=== PATIENT | male | born 1955 | race Caucasian/White ===

== ENCOUNTER 2025-02-01 11:28 | Observation (INO) | payer SELFPAY ==
[2025-02-01] VITALS (7 sets, daily range): BP systolic 118–184; BP diastolic 52–92; PULSE 55–67; RESP 16; TEMP 36.4–36.8; O2SAT 95–99; BMI 20.9; BMI 21.8
--- NOTE | 2025-02-01 11:45 | XRR_ITS ---
PROCEDURE INFORMATION: Exam: XR Chest Exam date and time: 02/01/2025 12:00 PM Age: 69 years old Clinical indication: Cough and dyspnea; Additional info: Dyspnea/cough TECHNIQUE: Imaging protocol: Radiologic exam of the chest. Views: 1 view. COMPARISON: No relevant prior studies available. FINDINGS: Lungs: Unremarkable. No consolidation or mass. Pleural spaces: Unremarkable. No pleural effusion. No pneumothorax. Heart/Mediastinum: Unremarkable. No cardiomegaly. Bones/joints: Unremarkable. XR/XR chest 1V portable [id number] IMPRESSION: No acute findings.
--- NOTE | 2025-02-01 11:45 | CT_ITS ---
WS: [id number] CT HEAD TECHNIQUE: Noncontrast CT of the head obtained from the skullbase to the vertex. CLINICAL INFORMATION: Syncopal episode fall COMPARISON: None. DLP: 1006.[address] scans at [facility] use at least one of these dose optimization techniques: automated exposure control; mA and/or kV adjustment per patient size (includes targeted exams where dose is matched to clinical indication); or iterative reconstruction. FINDINGS: No evidence of intracranial hemorrhage or mass effect. Ventricular system and basal cisterns are patent. Mild small vessel changes with mild parenchymal volume loss. Benign basal ganglia calcifications. No extra-axial fluid collections. No evidence of mass or mass effect. Vascular calcification. A few secretions within the sphenoid sinus. Paranasal sinuses are otherwise well aerated. Mastoid air cells are well aerated. CT/CT head wo con* [id number] IMPRESSION: 1. No evidence of intracranial hemorrhage or mass effect. 2. No acute intracranial findings.
--- NOTE | 2025-02-01 12:02 | ECG_ITS ---
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1955 Requested By: Eric Naik Order Number: [id number] Reading MD: DEREK YAN Measurements Intervals [place] Rate: 58 P: 48 [place]: 227 QRS: 61 QRSD: 98 T: 63 QT: 436 QTc: 428 Interpretive Statements SINUS BRADYCARDIA WITH FIRST DEGREE AV BLOCK INCOMPLETE RIGHT BUNDLE BRANCH BLOCK [90+ ms QRS DURATION, TERMINAL R IN V1/V2, 40+ ms S IN I/aVL/V4/V5/V6] MINIMAL VOLTAGE CRITERIA FOR LVH, CONSIDER NORMAL VARIANT [MEETS CRITERIA IN ONE OF: R(aVL), S(V1), R(V5), R(V5/V6)+S(V1)] No previous ECG available for comparison Electronically Signed On 02-04-2025 13:59:52 CDT by DEREK YAN [email or web address] [id number]
[2025-02-01 12:21] LABS: Hematocrit 42.6 % (37-53); Hemoglobin 14.00 g/dL (11.27-16.99); Mean Corpuscular HGB Conc 32.9 g/dL (30-55); Mean Corpuscular Hemoglobin 29.4 pg (27-33); Mean Corpuscular Volume 89.5 fl (82-101); Nucleated Red Blood Cells % 0 %; Platelet Count 235 10^3/cmm (157-399); Red Blood Count 4.76 10^6/uL (3.85-5.65); White Blood Count 8.51 10^3/uL (3.29-11.43)
[2025-02-01 12:47] LABS: Alanine Aminotransferase 25 U/L (0-41); Albumin Level 4.2 g/dL (3.5-5.2); Alkaline Phosphatase 110 U/L (40-130); Anion Gap 15.9 (5-19); Aspartate Amino Transferase 20 U/L (0-40); Blood Urea Nitrogen 19 mg/dL (8-23); Calcium 8.8 mg/dL (8.5-10.5); Carbon Dioxide 24 mmol/L (22-29); Chloride 105 mmol/L (98-107); Creatinine Clr Calc Pharmacy 71.0804; Globulin 2.9 g/dL (1.3-4.6); Glucose 75 mg/dL (65-115); Osmolality Calculated 293 mOsm/kg (285-295); Potassium 3.9 mmol/L (3.5-5.1); Sodium 141 mmol/L (136-145); Total Protein 7.1 g/dL (6.6-8.7)
[2025-02-01 12:49] LABS: Troponin(5th) Baseline 8 ng/L (0-15)
--- NOTE | 2025-02-01 13:35 | USCV_ITS ---
Alen Lee Age: 69 Gender: M : 1955 Exam Date: 02/01/2025 14:10 Ordering Phys: Zoraida Danielson MD Technologist: [place] [facility] [place]: tia cva BP: 153 / 81 HR: 63 Rhythm: Sinus Technical Quality: Adequate MEASUREMENTS (Male / Female) Normal Values 2D ECHO LV Diastolic Diameter PLAX 4.2 cm 4.2 - 5.9 / 3.9 - 5.3 cm IVS Diastolic Thickness 0.9 cm 0.6 - 1.0 / 0.6 - 0.9 cm IVS Systolic Thickness 1.3 cm LVPW Diastolic Thickness 1.0 cm 0.6 - 1.0 / 0.6 - 0.9 cm LVPW Systolic Thickness 1.6 cm LVOT Diameter 2.2 cm LV Ejection Fraction 2D Teich 64.1 % LV Ejection Fraction MOD 4C 64.9 % LA Diameter 2.8 cm RA Systolic Volume 4C AL 27.1 ml RA Systolic Volume 4C MOD 25.9 ml LA Sys Volume AL 45.3 cm cubed LA Sys Volume Index AL 26.8 cm cubed/m squared Aorta at Sinotubular Diameter 2.6 cm M-MODE LA Ao Ratio MM 1.1 AV Cusp Separation MM 2.3 cm DOPPLER AV Peak Velocity 144.0 cm/s LVOT Peak Velocity 85.0 cm/s AV Area Cont Eq vti 4.3 cm squared AV Area Cont Eq pk 2.2 cm squared MV Area PHT 5.2 cm squared Mitral E to A Ratio 1.1 TV Peak Velocity 273.7 cm/s TR Peak Velocity 524.0 cm/s TR Peak Gradient 109.8 mmHg TV Peak E Velocity 89.0 cm/s PV Peak Velocity 61.0 cm/s FINDINGS Left Ventricle Normal left ventricular size, systolic function and wall thickness, with no regional wall motion abnormalities. Left ventricular ejection fraction is estimated at 60 %. Grade II/IV diastolic dysfunction, moderately elevated filling pressures. Right Ventricle The right ventricle is normal in size and function. Right Atrium The right atrium is normal in size. Left Atrium The left atrium is normal in size. Mitral Valve Moderately thickened mitral valve. No mitral valve stenosis. Mild mitral valve regurgitation. Aortic Valve Moderate aortic valve calcification. No aortic valve stenosis. Moderate aortic valve regurgitation. Tricuspid Valve Structurally normal tricuspid valve without significant stenosis or regurgitation. Pulmonary artery systolic pressure is normal. Pulmonic Valve Structurally normal pulmonic valve without significant stenosis. There is no pulmonic regurgitation. Pericardium Normal pericardium without effusion. Aorta Normal ascending aorta dimension. IVC The inferior vena cava appears normal. CONCLUSIONS Normal left ventricular size, systolic function and wall thickness, with no regional wall motion abnormalities. Left ventricular ejection fraction is estimated at 60 %. Grade II/IV diastolic dysfunction, moderately elevated filling pressures. Moderate aortic valve calcification. No aortic valve stenosis. Moderate aortic valve regurgitation. Moderately thickened mitral valve. No mitral valve stenosis. Mild mitral valve regurgitation. There is no pericardial effusion. Right atrial pressure is around 5 mm of mercury. Anne Marie Kong MD (Electronically Signed) Final Date: 02 February 2025 12:58 S
--- NOTE | 2025-02-01 13:38 | USCV_ITS ---
Jesus Alen Age: 69 Gender: M : 1955 Exam Date: 02/01/2025 14:37 Ordering Phys: Zoraida Danielson MD Technologist: Exam Location: [facility] [place] Indication: tia cva Risk Factors: Previous Vascular Surgery: Right Brachial BP: / Left Brachial BP: / Right Left Velocity (cm/s) Spectral Plaque Velocity (cm/s) Spectral Plaque Syst/Diast Broadening Syst/Diast Broadening 95.70/ 21.90 Prox CCA 33.10 / 8.00 95.60/ 19.30 Mid CCA 46.60 / 9.80 53.00/ 11.30 Distal CCA 51.10 / 10.70 45.20/ 14.10 Prox ICA 44.50 / 10.40 59.40/ 20.70 Mid ICA 47.80 / 15.60 51.80/ 15.00 Distal ICA 50.40 / 17.30 55.60 ECA 56.80 1.10 ICA/CCA 1.00 Antegrade Vertebral Antegrade 27.30/ 9.30 cm/s 37.40/ 11.20 cm/s Tri Subclavian Tri 86.70 77.40 CONCLUSIONS Right ICA stenosis <50%. Mild atheromatous plaque right carotid bulb/ICA. Left ICA stenosis <50%. Mild atheromatous plaque left carotid bulb/ICA. Intimal thickening in the common carotid arteries and internal carotid arteries bilaterally. Normal antegrade Doppler flow noted in the right vertebral artery. Normal antegrade Doppler flow noted in the left vertebral artery. Luis Laws MD (Electronically Signed) Final Date: 01 February 2025 16:17 S
--- NOTE | 2025-02-01 13:57 | ED_ITS ---
HPI - Syncope 2 General: Chief Complaint: Syncope Stated Complaint: fall-blacked out yesterday Time Seen by Provider: 02/01/25 11:44 History of Present Illness: 69-year-old male presents emergency room after syncopal episode. Has had several episodes where he is just spontaneously lost consciousness. He has not had any today. Did have episode yesterday while he was at work no warning just simply passed out lost consciousness he did not think he hit his head he is not on any anticoagulant he denies any chest pain lightheadedness or dizziness. He has had episodes like this previously. No history of any arrhythmias no known history of any coronary artery disease. Associated symptoms: Deny abdominal pain, chest pain or fever(s) Related Data Allergies Allergy/AdvReac Type Severity Reaction Status Date / Time No Known Allergies Allergy Verified 02/01/25 11:41 Review of Systems 2 Const: Denies: fever(s) or chills Card: Denies: chest pain Resp: Denies: dyspnea GI: Denies: abdominal pain : Denies: dysuria, urinary frequency or urinary urgency Musc: Denies: neck pain or back pain Skin/Breast: Denies: rash Physical Exam 2 Const: GENERAL APPEARANCE: cooperative ORIENTATION/CONSCIOUSNESS: Yes awake, Yes oriented to person, Yes oriented to place and Yes oriented to time HENMT: COMMON NORMALS: normocephalic, atraumatic and hearing grossly normal bilaterally HEAD & SCALP: normocephalic and atraumatic Resp: COMMON NORMALS: normal respiratory effort, No retractions, No use of accessory muscles and clear to auscultation bilaterally AUSCULTATION: clear to auscultation bilaterally Cardio: COMMON NORMALS: regular rate, regular rhythm and No murmurs present (Cardio) RATE: regular rate RHYTHM: regular rhythm GI: COMMON NORMALS: Soft to palpation and No hepatosplenomegaly present A USCULTATION: Yes normoactive bowel sounds PALPATION: Yes Soft to palpation, No Tenderness to palpation present (GI), No Guarding due to palpation present (GI) and Yes No hepatosplenomegaly present Extremity: COMMON NORMALS: normal to inspection, capillary refill normal, no clubbing, cyanosis or edema, no calf tenderness and no pedal edema Neuro: SENSORIUM/ORIENTATION: Yes oriented to person, Yes oriented to place and Yes oriented to time OTHER: No focal neurologic deficits strength equal in all extremities dorsal plantarflexion and 5 of 5 no arm drift no leg drift normal facial symmetry no visual field defects Skin: COMMON NORMALS: no rashes or lesions noted GENERAL SKIN EXAM: no rashes or lesions noted Course 2 Vital Signs: Vital signs: Vital Signs Temperature 97.5 F L 02/01/25 11:38 Pulse Rate 57 L 02/01/25 13:44 Respiratory Rate 16 02/01/25 13:44 Blood Pressure 153/81 02/01/25 13:44 Pulse Oximetry 98 02/01/25 13:44 Oxygen Delivery Me thod Room Air 02/01/25 13:44 MDM - Syncope Medical Decision Making Unexplained syncope. EKG showed sinus bradycardia with a first-degree AV block no acute ST changes rate of 57 LA interval of 224 QTc with 428. Patient has not had any further symptoms since arriving here is auscultation of his heart was normal. Discussed with hospitalist will admit given multiple syncopal episodes for cardiac evaluation. CT head is negative no focal neurologic deficits on exam Lab Data I reviewed the patient's lab results. 02/01/25 12:08 02/01/25 12:08 Radiology Impressions Chest X-Ray 02/01/25 11:45 IMPRESSION: No acute findings. Head CT 02/01/25 11:45 IMPRESSION: 1. No evidence of intracranial hemorrhage or mass effect. 2. No acute intracranial findings. Laboratory Results WBC 8.51 10^3/uL (3.29-11.43) 02/01/25 12:08 RBC 4.76 10^6/uL (3.85-5.65) 02/01/25 12:08 Hgb 14.00 g/dL (11.27-16.99) 02/01/25 12:08 Hct 42.6 % (37-53) 02/01/25 12:08 MCV 89.5 fl (82-101) 02/01/25 12:08 MCH 29.4 pg (27-33) 02/01/25 12:08 MCHC 32.9 g/dL (30-55) 02/01/25 12:08 RDW 13.2 % (12.1-15.1) 02/01/25 12:08 Plt Count 235 10^3/cmm (157-399) 02/01/25 12:08 MPV 10.5 fL (7.4-10.4) H 02/01/25 12:08 Neut % (Auto) 70.6 % 02/01/25 12:08 Lymph % (Auto) 19.5 % 02/01/25 12:08 [place] % (Auto) 6.8 % 02/01/25 12:08 Eos % (Auto) 2.2 % 02/01/25 12:08 Baso % (Auto) 0.5 % 02/01/25 12:08 Neut # (Auto) 6.01 10^3/uL (1.8-7.7) 02/01/25 12:08 Lymph # (Auto) 1.7 10^3/uL (0.8-4.8) 02/01/25 12:08 [place] # (Auto) 0.6 10^3/uL (0.2-0.9) 02/01/25 12:08 Eos # (Auto) 0.2 10^3/uL (0.0-0.8) 02/01/25 12:08 Baso # (Auto) 0.0 10^3/uL (0.0-0.1) 02/01/25 12:08 Nucleated RBC % (auto) 0 % 02/01/25 12:08 Nucleated RBCs # 0.0 /100WBC 02/01/25 12:08 Sodium 141 mmol/L (136-145) 02/01/25 12:08 Potassium 3.9 mmol/L (3.5-5.1) 02/01/25 12:08 Chloride 105 mmol/L (98-107) 02/01/25 12:08 Carbon Dioxide 24 mmol/L (22-29) 02/01/25 12:08 Anion Gap 15.9 (5-19) 02/01/25 12:08 BUN 19 mg/dL (8-23) 02/01/25 12:08 Creatinine 0.9 mg/dL (0.7-1.2) 02/01/25 12:08 GFR Calculation 83.9 mL/min (90-130) L 02/01/25 12:08 Glucose 75 mg/dL (65-115) 02/01/25 12:08 Calculated Osmolality 293 mOsm/kg (285-295) 02/01/25 12:08 Calcium 8.8 mg/dL (8.5-10.5) 02/01/25 12:08 Total Bilirubin 0.5 mg/dL (0.15-1.2) 02/01/25 12:08 AST 20 U/L (0-40) 02/01/25 12:08 ALT 25 U/L (0-41) 02/01/25 12:08 Alkaline Phosphatase 110 U/L (40-130) 02/01/25 12:08 Troponin T Baseline 8 ng/L (0-15) 02/01/25 12:08 Total Protein 7.1 g/dL (6.6-8.7) 02/01/25 12:08 Albumin 4.2 g/dL (3.5-5.2) 02/01/25 12:08 Globulin 2.9 g/dL (1.3-4.6) 02/01/25 12:08 All radiology interpretation(s) finalized by discharge Discharge Plan Discharge Patient Disposition: Placed in Observation Clinical Impression: Syncope Coding Level of Care Code ED 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
--- NOTE | 2025-02-01 13:59 | ECG_ITS ---
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
[2025-02-01 14:14] LABS: Estmated Average Glucose 111; Hemoglobin A1C 5.5 % (4.0-6.0)
[2025-02-01 14:21] LABS: Cholesterol 152 mg/dL (0-200); HDL Cholesterol 54 mg/dL (60-100); Thyroid Stimulating Hormone 1.41 uIU/mL (0.27-4.20); Triglycerides 92 mg/dL (0-150); Vitamin B12 471 pg/mL (232-1245)
[2025-02-01 14:55] LABS: Troponin 5 2HR 7.88 ng/L (0-15)
[2025-02-01 14:58] LABS: Troponin 5 2HR Delta -0.12 ABS# (0-10)
--- NOTE | 2025-02-01 17:39 | ECG_ITS ---
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1955 Requested By: Eric Naik Order Number: [id number] Reading MD: DEREK YAN Measurements Intervals [place] Rate: 59 P: 6 CO: 204 QRS: 26 QRSD: 99 T: 52 QT: 435 QTc: 433 Interpretive Statements SINUS BRADYCARDIA INCOMPLETE RIGHT BUNDLE BRANCH BLOCK [90+ ms QRS DURATION, TERMINAL R IN V1/V2, 40+ ms S IN I/aVL/V4/V5/V6] MODERATE ST DEPRESSION [0.05+ mV ST DEPRESSION] Compared to ECG 02/01/2025 13:59:04 Incomplete right bundle-branch block now present ST (T wave) deviation now present First degree AV block no longer present Electronically Signed On 02-04-2025 14:10:48 CDT by DEREK YAN [id number]
[2025-02-01 18:24] LABS: Troponin 5 6HR 8.34 ng/L (0-15); Troponin 5 6HR Delta 0.34 ng/L (0-12)
--- NOTE | 2025-02-01 20:34 | PM.HP ---
Providers/Chief Complaint Admitting Physician: Zoraida Danielson MD Chief Complaint: fall-blacked out yesterday History of Present Illness Alen Lee is a 69 year old male with no significant past medical history presented to the hospital today with a syncopal episode. He states that he had a near syncopal episodes twice in the last week however on completely collapsed without warning. Did not feel lightheaded that day that he can think of. He works at a [email or web address]. Heart rate has to be noted on the lower side in the ER along with first degree AV block. Denies nausea vomiting diarrhea chest pain shortness of breath or any other issues at this time. Family present at bedside Medications/Allergies Home Medications ?Medication ?Instructions ?Recorded ?Confirmed ?Last Taken ?Type Blood Pressure Support 1 cap PO DAILY 02/02/25 02/02/25 01/31/25 History Allergies Allergy/AdvReac Type Severity Reaction Status Date / Time No Known Allergies Allergy Verified 02/01/25 11:41 Vitals/I&O/Wt Last Vital Signs Temp 97.6 F 02/02/25 11:09 Pulse 53 L 02/02/25 11:09 Resp 16 02/02/25 11:09 BP 160/77 02/02/25 11:09 Pulse Ox 99 02/02/25 11:09 O2 Del Method Room Air 02/02/25 11:09 02/02/25 02/02/25 02/02/25 06:59 14:59 22:59 Intake Total 1073.333 / 6083.473 1152 / 1480 Balance 1073.333 / 2568.629 2276 / 1480 Weight last 48 hrs Weight 63.049 kg Weight 63.191 kg Weight 60.781 kg Physical Exam Narrative: General: Alert oriented x3, patient seen sitting up in bed appearing comfortable at this time. HEENT: Normocephalic, atraumatic, EOMI, breathing comfortably on room air. Cardio: Regular rate rhythm, normal S1-S2, Respiratory: Good bilateral air entry, no wheezes no rhonchi appreciated GI: Abdomen soft, nontender, nondistended, bowel sounds + Behavior: Appropriate and cooperative Extremities: No edema bilateral extremities Data 02/02/25 04:06 02/02/25 04:06 A&P Assessment and plan 1. Bradycardia: 2. AV block, 1st degree: 3. Syncope: 4. Hypertension: Plan: #Syncopal episode #Bradycardia reports degree AV block #Possible new onset hypertension ? Blood pressure noted to be high in ER. ? EKG showed sinus bradycardia first-degree AV block ? Saturating 99% on room air ? Check TSH, echocardiogram, carotid Dopplers ? CT head negative for bleed ? Chest x-ray reviewed, no acute findings ? Placed on cardiac telemetry and monitor ? Patient is not known to be an athlete. ? Placed on amlodipine 10 mg daily. ? Check orthostatic vitals ? Trops are negative ? Placed on regular diet ? Up with assistance due to syncope. Full code DVT prophylaxis: Low risk PDMP PDMP Reviewed: Not Reviewed Attestations Medical Necessity Statement*: Observation status for syncopal episode and further workup suspicion of cardiogenic syncope and treatment of hypertension. Expect less than 2 midnight stay however that may be converted to a longer stay if any abnormalities noted. Diagnoses Bradycardia R00.1 AV block, 1st degree I44.0 Syncope R55 Hypertension I10
[2025-02-02] VITALS (10 sets, daily range): BP systolic 115–168; BP diastolic 64–77; PULSE 51–78; RESP 14–55; TEMP 36.4–36.7; O2SAT 97–100
[2025-02-02 04:17] LABS: Hematocrit 36.0 % (37-53); Hemoglobin 12.10 g/dL (11.27-16.99); Mean Corpuscular HGB Conc 33.6 g/dL (30-55); Mean Corpuscular Hemoglobin 30.0 pg (27-33); Mean Corpuscular Volume 89.1 fl (82-101); Nucleated Red Blood Cells % 0 %; Platelet Count 177 10^3/cmm (157-399); Red Blood Count 4.04 10^6/uL (3.85-5.65); White Blood Count 5.47 10^3/uL (3.29-11.43)
[2025-02-02 04:34] LABS: Alanine Aminotransferase 18 U/L (0-41); Albumin Level 3.2 g/dL (3.5-5.2); Alkaline Phosphatase 95 U/L (40-130); Anion Gap 13.0 (5-19); Aspartate Amino Transferase 17 U/L (0-40); Blood Urea Nitrogen 15 mg/dL (8-23); Calcium 8.0 mg/dL (8.5-10.5); Carbon Dioxide 23 mmol/L (22-29); Chloride 108 mmol/L (98-107); Creatinine Clr Calc Pharmacy 72.1516; Globulin 2.8 g/dL (1.3-4.6); Glucose 105 mg/dL (65-115); Magnesium 2.0 mg/dL (1.7-2.3); Osmolality Calculated 291 mOsm/kg (285-295); Potassium 4.0 mmol/L (3.5-5.1); Sodium 140 mmol/L (136-145); Total Protein 6.0 g/dL (6.6-8.7)
--- NOTE | 2025-02-02 12:02 | ECG_ITS ---
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 Interpretive Statements EXERCISE STRESS TEST EXERCISE DATA: The patient was exercised by Xu protocol. Baseline heart rate was 88 beats per minute. Baseline blood pressure was 143/105 millimeters of mercury. Maximal predicted heart rate was 152 beats per minute. Maximum heart rate achieved was 155, which was 101% of the maximum predicted heart rate. Maximum blood pressure was 183/85 millimeters of mercury. Total exercise time was 5 minutes and 6 seconds. Maximum METs achieved was 7.0. The reason for ending the test was completion of protocol. The patient complained of shortness of breath during the stress test, which then resolved at the end of the test. ELECTROCARDIOGRAM: BASELINE: Showed sinus rhythm, normal axis, no significant ST-T changes at the baseline noted. [] EXERCISE: At the peak exercise level, [] No significant ST-T changes suggestive of ischemia noted. [] RECOVERY: During the recovery period, heart rate dropped appropriately. No significant ST-T changes in the recovery suggestive of ischemia noted. [] CONCLUSION: 1. Exercise capacity is fair. 2. Heart rate response was appropriate 3. Blood pressure response was appropriate 4. Symptoms not suggestive of ischemia. 5. Electrocardiogram portion of the stress test was not suggestive of ischemia. 6. Nuclear scan will be documented separately. Electronically Signed On 02-05-2025 12:10:20 CDT by Brice Muñoz M.D. [id number]
--- NOTE | 2025-02-02 16:39 | P.PN_ITS ---
Subjective 2 Subjective: Seen this morning. Sitting up in chair. Overnight on telemetry he was noted to be bradycardic down to 47 heart rate. Sinus pericardia, no sinus pauses noted Vitals/I&O/Wt Last Vital Signs Temp 97.6 F 02/02/25 11:09 Pulse 53 L 02/02/25 11:09 Resp 16 02/02/25 11:09 BP 160/77 02/02/25 11:09 Pulse Ox 99 02/02/25 11:09 O2 Del Method Room Air 02/02/25 11:09 02/02/25 02/02/25 02/02/25 06:59 14:59 22:59 Intake Total 1073.333 / 0695.804 5732 / 1480 Balance 1073.333 / 2902.359 8059 / 1480 Weight last 48 hrs Weight 63.049 kg Weight 63.191 kg Weight 60.781 kg Physical Exam 2 Narrative: General: Alert oriented x3, patient seen sitting up in bed appearing comfortable at this time. HEENT: Normocephalic, atraumatic, EOMI, breathing comfortably on room air. Cardio: Regular rate rhythm, normal S1-S2, Respiratory: Good bilateral air entry, no wheezes no rhonchi appreciated GI: Abdomen soft, nontender, nondistended, bowel sounds + Extremities: No edema bilateral extremities Data 02/02/25 04:06 02/02/25 04:06 A&P Assessment and plan 1. Bradycardia: 2. AV block, 1st degree: 3. Syncope: 4. Hypertension: Plan: #Syncopal episode #Bradycardia reports degree AV block #Possible new onset hypertension ? Blood pressure noted to be high in ER. ? EKG showed sinus bradycardia first-degree AV block ? Saturating 99% on room air ? Check TSH, echocardiogram, carotid Dopplers ? CT head negative for bleed ? Chest x-ray reviewed, no acute findings ? Placed on cardiac telemetry and monitor ? Patient is not known to be an athlete. ? Placed on amlodipine 10 mg daily. ? Check orthostatic vitals ? Trops are negative ? Placed on regular diet ? Up with assistance due to syncope. Full code DVT prophylaxis: Low risk 02/02/2025 seen today will order exercise stress test for tuesday echo pending continue to hospitalize at this point add lisinopril 20 daily continue amlodipine 10 daily PDMP PDMP Reviewed: Not Reviewed Attestations 2 Medical Necessity Statement*: Observation status for syncopal episode and further workup suspicion of cardiogenic syncope and treatment of hypertension. Diagnoses Bradycardia R00.1 AV block, 1st degree I44.0 Syncope R55 Hypertension I10
[2025-02-03] VITALS (11 sets, daily range): BP systolic 102–138; BP diastolic 54–75; PULSE 57–67; RESP 16–20; TEMP 36.3–36.8; O2SAT 95–97
--- NOTE | 2025-02-03 13:35 | P.PN_ITS ---
Subjective 2 Subjective: seen today awaiting stress test tuesday Vitals/I&O/Wt Last Vital Signs Temp 97.7 F 02/03/25 11:40 Pulse 61 02/03/25 11:40 Resp 18 02/03/25 11:40 BP 119/64 02/03/25 11:40 Pulse Ox 97 02/03/25 11:40 O2 Del Method Room Air 02/03/25 11:40 02/02/25 02/03/25 02/03/25 22:59 06:59 14:59 Intake Total 240 / 1720 480 / 2200 960 / 960 Balance 240 / 1720 480 / 2200 960 / 960 Weight last 48 hrs Weight 63.049 kg Weight 63.049 kg Weight 63.191 kg Physical Exam 2 Narrative: General: Alert oriented x3, patient seen sitting up in bed appearing comfortable at this time. HEENT: Normocephalic, atraumatic, EOMI, breathing comfortably on room air. Cardio: Regular rate rhythm, normal S1-S2, Respiratory: Good bilateral air entry, no wheezes no rhonchi appreciated GI: Abdomen soft, nontender, nondistended, bowel sounds + Extremities: No edema bilateral extremities Data 02/02/25 04:06 02/02/25 04:06 A&P Assessment and plan 1. Bradycardia: 2. AV block, 1st degree: 3. Syncope: 4. Hypertension: Plan: #Syncopal episode #Bradycardia reports degree AV block #Possible new onset hypertension ? Blood pressure noted to be high in ER. ? EKG showed sinus bradycardia first-degree AV block ? Saturating 99% on room air ? Check TSH, echocardiogram, carotid Dopplers ? CT head negative for bleed ? Chest x-ray reviewed, no acute findings ? Placed on cardiac telemetry and monitor ? Patient is not known to be an athlete. ? Placed on amlodipine 10 mg daily. ? Check orthostatic vitals ? Trops are negative ? Placed on regular diet ? Up with assistance due to syncope. Full code DVT prophylaxis: Low risk 02/02/2025 seen today will order exercise stress test for tuesday echo pending continue to hospitalize at this point add lisinopril 20 daily continue amlodipine 10 daily 02/03/2025 continue lisinopril 20 daily continue amlodipine 10 dialy echo reviewed exercise stress test in AM (Discussed with cardiology) PDMP PDMP Reviewed: Not Reviewed Attestations 2 Medical Necessity Statement*: Observation status for syncopal episode and further workup suspicion of cardiogenic syncope and treatment of hypertension. Diagnoses Bradycardia R00.1 AV block, 1st degree I44.0 Syncope R55 Hypertension I10
[2025-02-04] VITALS (9 sets, daily range): BP systolic 108–152; BP diastolic 58–86; PULSE 57–86; RESP 17–18; TEMP 36.4–36.8; O2SAT 96–97
[2025-02-04 04:46] LABS: Hematocrit 41.0 % (37-53); Hemoglobin 13.40 g/dL (11.27-16.99); Mean Corpuscular HGB Conc 32.7 g/dL (30-55); Mean Corpuscular Hemoglobin 30.0 pg (27-33); Mean Corpuscular Volume 91.7 fl (82-101); Nucleated Red Blood Cells % 0 %; Platelet Count 208 10^3/cmm (157-399); Red Blood Count 4.47 10^6/uL (3.85-5.65); White Blood Count 6.05 10^3/uL (3.29-11.43)
[2025-02-04 05:05] LABS: Anion Gap 12.7 (5-19); Blood Urea Nitrogen 13 mg/dL (8-23); Calcium 8.7 mg/dL (8.5-10.5); Carbon Dioxide 26 mmol/L (22-29); Chloride 107 mmol/L (98-107); Creatinine Clr Calc Pharmacy 58.9815; Glucose 112 mg/dL (65-115); Magnesium 2.0 mg/dL (1.7-2.3); Osmolality Calculated 293 mOsm/kg (285-295); Potassium 4.7 mmol/L (3.5-5.1); Sodium 141 mmol/L (136-145)
--- NOTE | 2025-02-04 12:02 | NMCV_ITS ---
NM anusha perf SPECT r/s* [id number] Alen Lee Age: 69 Gender: M : 1955 Exam Date: 02/04/2025 06:40 Ordering Phys: Zoraida Danielson MD Technologist: LAYTON Mack Exam Location: [facility] Indications: CP STRESS TEST Please see separate stress test report in [facility] for full findings IMAGE PROTOCOL Rest/Stress 1 Exercise Day Radiopharmaceutical Dose (mCi) Administration Site Administered by Rest: Tc-99m 10.9 IV LAYTON Alexandra Sestamitodd Stress:Tc-99m 33 IV LAYTON Mack Sestamitodd Rest: 04-Feb-2025 60 Discovery 630 Stress: 04-Feb-2025 15 Discovery 630 Radiopharmaceutical was injected at 87 % maximum heart rate. Images obtained in supine and prone position. SPECT RESULTS Technical Quality: Good Raw Data Analysis: Normal Image Corrections: No attenuation or motion correction applied Summed Stress Score: 1 Summed Rest Score: 2 Summed Difference Score: 0 PERFUSION FINDINGS Small sized fixed perfusion defect seen in inferolateral wall. 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 No significant ischemia. FUNCTIONAL RESULTS (calculated via Gated SPECT) Stress Image LV EF (%): 75 Stress EDV (mL):87 TID: 1.04 Stress ESV (mL):22 FUNCTIONAL FINDINGS: There is normal left ventricular systolic function. IMPRESSIONS 1. 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 No evidence of ischemia. 2. LV systolic function normal. Brice Muñoz MD (Electronically Signed) Final Date: 04 February 2025 08:39 S
--- NOTE | 2025-02-04 13:09 | P.DS_ITS ---
Discharge Providers Date of Admission: 02/01/25 13:52 Date of Discharge: February 04, 2025 Attending Provider at Admission: Zoraida Danielson MD Attending Provider at Discharge: Jared Cancino MD Diagnoses at Discharge Discharge Diagnosis 1. Bradycardia: 2. AV block, 1st degree: 3. Syncope: 4. Hypertension: Reason for Visit Reason for Visit: fall-blacked out yesterday Brief History: Alen Lee is a 69 year old male with no significant past medical history presented to the hospital today with a syncopal episode. He states that he had a near syncopal episodes twice in the last week however on completely collapsed without warning. Did not feel lightheaded that day that he can think of. He works at a [employer]. Heart rate has to be noted on the lower side in the ER along with first degree AV block. Denies nausea vomiting diarrhea chest pain shortness of breath or any other issues at this time. Family present at bedside Hospital Course Hospital Course Patient was admitted to the hospital further evaluation and management. Multiple etiologies including orthostatic hypotension, angina were ruled out. CT head on admission was negative for concern for stroke. Carotid Dopplers were done which were found to be normal. He underwent cardiac stress test on 02/04 which was negative for acute ischemia. During hospitalization he was found to have elevated blood pressures for which he was started on antihypertensives which were uptitrated with goal of less than 140/90 mmHg. Patient did not have any other episodes of presyncope or syncope. Patient's symptoms from admission are most likely due to heat exhaustion. He has been discharged in hemodynamic ally stable condition on oral amlodipine and lisinopril with advised to check his blood pressure daily at home with a goal of less than 140/90 mmHg. He is to follow-up with a primary care provider within next 2 weeks with his blood pressure diary for further adjustment of antihypertensive. Physical Exam Narrative: General: Alert oriented x3, patient seen sitting up in bed appearing comfortable at this time. HEENT: Normocephalic, atraumatic, EOMI, breathing comfortably on room air. Cardio: Regular rate rhythm, normal S1-S2, Respiratory: Good bilateral air entry, no wheezes no rhonchi appreciated GI: Abdomen soft, nontender, nondistended, bowel sounds + Extremities: No edema bilateral extremities Discharge Data Studies Completed and Pending Completed Studies During Hospitalization Category Date Time Status CT head wo con* [id number] Stat Cat Scan 02/01/25 11:45 Completed Sestamibi Stress Test Request Routine Exams 02/02/25 12:02 Draft XR chest 1V portable [id number] Stat Exams 02/01/25 11:45 Completed NM anusha perf SPECT r/s* [id number] Routine Nuc Med 02/04/25 12:02 Completed CV carotid duplex BI* [id number] Stat Ultrasound 02/01/25 13:38 Completed CV. echo complete* [id number] Stat Ultrasound 02/01/25 13:35 Completed Radiology Impressions Chest X-Ray 02/01/25 11:45 IMPRESSION: No acute findings. Head CT 02/01/25 11:45 IMPRESSION: 1. No evidence of intracranial hemorrhage or mass effect. 2. No acute intracranial findings. Laboratory Results WBC 6.05 10^3/uL (3.29-11.43) 02/04/25 04:30 RBC 4.47 10^6/uL (3.85-5.65) 02/04/25 04:30 Hgb 13.40 g/dL (11.27-16.99) 02/04/25 04:30 Hct 41.0 % (37-53) 02/04/25 04:30 MCV 91.7 fl (82-101) 02/04/25 04:30 MCH 30.0 pg (27-33) 02/04/25 04:30 MCHC 32.7 g/dL (30-55) 02/04/25 04:30 RDW 13.0 % (12.1-15.1) 02/04/25 04:30 Plt Count 208 10^3/cmm (157-399) 02/04/25 04:30 MPV 10.7 fL (7.4-10.4) H 02/04/25 04:30 Neut % (Auto) 61.6 % 02/04/25 04:30 Lymph % (Auto) 23.0 % 02/04/25 04:30 [place] % (Auto) 9.3 % 02/04/25 04:30 Eos % (Auto) 4.6 % 02/04/25 04:30 Baso % (Auto) 1.2 % 02/04/25 04:30 Neut # (Auto) 3.73 10^3/uL (1.8-7.7) 02/04/25 04:30 Lymph # (Auto) 1.4 10^3/uL (0.8-4.8) 02/04/25 04:30 [place] # (Auto) 0.6 10^3/uL (0.2-0.9) 02/04/25 04:30 Eos # (Auto) 0.3 10^3/uL (0.0-0.8) 02/04/25 04:30 Baso # (Auto) 0.1 10^3/uL (0.0-0.1) 02/04/25 04:30 Nucleated RBC % (auto) 0 % 02/04/25 04:30 Nucleated RBCs # 0.0 /100WBC 02/04/25 04:30 Sodium 141 mmol/L (136-145) 02/04/25 04:30 Potassium 4.7 mmol/L (3.5-5.1) 02/04/25 04:30 Chloride 107 mmol/L (98-107) 02/04/25 04:30 Carbon Dioxide 26 mmol/L (22-29) 02/04/25 04:30 Anion Gap 12.7 (5-19) 02/04/25 04:30 BUN 13 mg/dL (8-23) 02/04/25 04:30 Creatinine 1.1 mg/dL (0.7-1.2) 02/04/25 04:30 GFR Calculation 66.6 mL/min (90-130) L 02/04/25 04:30 Glucose 112 mg/dL (65-115) 02/04/25 04:30 POC Glucose 131 mg/dL (70-110) H 02/01/25 20:03 Estimat Average Glucose 111 02/01/25 12:08 Hemoglobin A1c 5.5 % (4.0-6.0) 02/01/25 12:08 Calculated Osmolality 293 mOsm/kg (285-295) 02/04/25 04:30 Calcium 8.7 mg/dL (8.5-10.5) 02/04/25 04:30 Phosphorus 2.2 mg/dL (2.5-4.5) L 02/04/25 04:30 Magnesium 2.0 mg/dL (1.7-2.3) 02/04/25 04:30 Total Bilirubin 0.4 mg/dL (0.15-1.2) 02/02/25 04:06 AST 17 U/L (0-40) 02/02/25 04:06 ALT 18 U/L (0-41) 02/02/25 04:06 Alkaline Phosphatase 95 U/L (40-130) 02/02/25 04:06 Troponin T Baseline 8 ng/L (0-15) 02/01/25 12:08 Troponin T 120 Minute 7.88 ng/L (0-15) 02/01/25 14:30 Delta Troponin T -0.12 ABS# (0-10) L 02/01/25 14:30 Troponin T Hi Sens 6Hr 8.34 ng/L (0-15) 02/01/25 17:44 Troponin T Hi Sens 6Hr Delta 0.34 ng/L (0-12) 02/01/25 17:44 Total Protein 6.0 g/dL (6.6-8.7) L 02/02/25 04:06 Albumin 3.2 g/dL (3.5-5.2) L 02/02/25 04:06 Globulin 2.8 g/dL (1.3-4.6) 02/02/25 04:06 Triglycerides 92 mg/dL (0-150) 02/01/25 12:08 Cholesterol 152 mg/dL (0-200) 02/01/25 12:08 LDL Cholesterol, Calc 80 mg/dL (50-129) 02/01/25 12:08 HDL Cholesterol 54 mg/dL (60-100) L 02/01/25 12:08 LDL/HDL Ratio 1.48 RATIO (0.00-3.22) 02/01/25 12:08 Cholesterol/HDL Ratio 2.81 mg/dL (1.0-5.00) 02/01/25 12:08 Vitamin B12 471 pg/mL (232-1245) 02/01/25 12:08 TSH 1.41 uIU/mL (0.27-4.20) 02/01/25 12:08 Vitals Last Vital Signs Temp 97.6 F 02/04/25 11:27 Pulse 68 02/04/25 11:27 Resp 17 02/04/25 11:27 BP 115/74 02/04/25 11:27 Pulse Ox 96 02/04/25 11:27 O2 Del Method Room Air 02/04/25 11:27 Discharge Plan Discharge Patient Disposition: Home Condition: Stable Prescriptions: New amlodipine 10 mg Tablet 10 mg PO DAILY Qty: 30 0RF lisinopril 20 mg Tablet 10 mg PO DAILY 30 Days Qty: 30 0RF simvastatin 10 mg tablet 10 mg PO DAILY Qty: 30 0RF Discontinued Blood Pressure Support 1 cap PO DAILY Discharge Order = DC NOW: Discharge Order (Routine); Ordered 02/04/25 Ordered By: Jared Cancino Other Ambulatory Orders: MCT/Event Monitor 21 Days (Routine) Timeframe: 1 Day Facility: [facility] - Location: Radiology Ordered By: Zoraida Danielson Discharge Diet: Cardiac Patient Instructions: Opioid Safety, Patient Portal & [facility] Instructions Activity Restrictions/Additional Instructions: Check your blood pressure daily at home maintain blood pressure diary. Goal blood pressure is less than 140/90 mmHg. Follow-up with your primary care provider within next 2 weeks for blood pressure diary for further adjustment of antihypertensive as needed. Discharge Attestations Time Spent in Discharge Care*: greater than 30 min Specific Discharge Activities: educating patient, educating and/or supporting family/caregiver, discussing with pcp/other providers, discussing with manager rn case/social workers/dc planners, documenting/other paperwork and evaluating patient/reviewing data Status at Discharge: Cognitive status at discharge: cognitively intact , Behavioral status at discharge: cooperative , Functional status at discharge: independent ambulation , Overall status at discharge: patient is back to baseline Quality Metrics Clinical Quality Measures [ No reported AMI, CVA or VTE this stay] Coding Level of Care Code 61082 Total time (in minutes) for Discharge: 65 Diagnoses Bradycardia R00.1 AV block, 1st degree I44.0 Syncope R55 Hypertension I10
--- NOTE | 2025-02-04 14:48 | PC.NURSE ---
Discharge Note Patient discharged to home via private vehicle accompanied by family. Discharge instructions reviewed with patient and/or paper sales representative. Mobile pharmacy medications and/or prescriptions provided. Belongings/home medications returned.
--- NOTE | 2025-02-04 15:21 | PC.NURSE ---
I placed patients event monitor and educated them on how to use, patient showed understanding by verbal agreement
== END 2025-02-04 15:22 | disposition home or self-care (01) ==
LOC: ER 14:03 → MEDSURG 14:32
PROVIDERS: Admitting Provider Internal Medicine; Emergency Provider Family Medicine; Visit Provider Student in an Organized Health Care Education/Training Program
DX: R55 Syncope and collapse (principal); I44.0 Atrioventricular block, first degree; R00.1 Bradycardia, unspecified; I10 Essential (primary) hypertension
CPT/HCPCS: 36415; 36416; 70450; 71045; 78452; 80048; 80053; 80061; 82607; 82962; 83036; 83735; 84100; 84443; 84484; 85025; 93005; 93017; 93306; 93880; 96360; 96361; 96375; 99285; A9500; G0378; J7030; J9999

== ENCOUNTER → 2025-06-04 09:49 | Outpatient (BNVA) | payer MEDICARE, SELFPAY | PROVIDERS: PCP Nurse Practitioner Family; Visit Provider Nurse Practitioner Family | DX: Z12.5 Encounter for screening for malignant neoplasm of prostate (principal); I10 Essential (primary) hypertension; R55 Syncope and collapse; R00.1 Bradycardia, unspecified | CPT/HCPCS: 80053; 80061; 84443; 85025; G0103 ==